=== PATIENT | female | born 1990 | race Caucasian/White ===

== ENCOUNTER 2022-07-08 04:28 | Emergency (ER) | payer MEDICAID, SELFPAY ==
[2022-07-08 04:39] VITALS: BP 134/87; PULSE 68; RESP 18; TEMP 36.8; O2SAT 98
--- NOTE | 2022-07-08 04:45 | CRLHL7_ITS ---
For Patients: As a result of the Cures Act, medical imaging exams and procedure reports are released immediately into your electronic medical record. You may view this report before your referring provider. If you have questions, please contact your health care provider. INDICATION: Injury and pain. TECHNIQUE: Chest and right ribs 3 views. COMPARISON: 05/28/2013. FINDINGS: Cardiovascular and mediastinum: Heart size and vasculature are normal in caliber and appearance. Mediastinum is within normal limits. Lungs and pleural spaces: Lungs are clear. No sign of infiltrate or mass. No sign of pleural effusion. No pneumothorax. Bones and soft tissues: Detailed oblique images of the right ribs demonstrate no fractures or bone lesions. IMPRESSION: Unremarkable chest and right ribs. Dictated by Romel Mireles MD @ 07/08/2022 5:17:12 AM (Electronically Signed)
[2022-07-08] MEDS: IPRAT-ALBUT 0.5-2.5 MG/3 ML NEB 1 NEB IH (05:40)
--- NOTE | 2022-07-08 05:45 | ED_ITS ---
HPI - Chest Pain General Date Seen: 07/08/22 Chief Complaint: Rib Pain Stated Complaint: lung or rib, shortness of breathe Time Seen by Provider: 07/08/22 04:58 Source: patient Mode of arrival: ambulatory Limitations: no limitations History of Present Illness HPI narrative: Patient is a 32-year-old female who has been sick for the last month, she has a cough, she was coughing tonight time and noted up pop on the right side of her chest, while she was coughing. She has had pain on the right side since this occurred, and she presents here approximately 30 minutes after this occurred, sh e did try earlier in the close antibiotics for sinusitis, and also prednisone and albuterol. She has no previous history of asthma pneumonias, presents ambulatory here, speaks normally, does have some coughing, complaint: chest discomfort Onset (ago): minute(s) Prior episodes: No Pain location: right chest Pain radiation: none Severity: moderate Quality: aching Relieving factors: nothing Exacerbating factors: nothing Context: recent illness Treatment prior to arrival: none Risk Factors Coronary artery disease risk factors: none Thoracic aortic dissection risk factors: none Related Data On Oral Contraceptives: No Home Medications Medication Instructions Recorded Confirmed ibuprofen 200 mg tablet 400 mg PO Q6H PRN 05/11/22 07/08/22 omeprazole 20 mg capsule,delayed 20 mg PO DAILY 05/11/22 07/08/22 release ondansetron 4 mg disintegrating 4 mg PO Q6H PRN 05/11/22 06/21/22 tablet sertraline 50 mg tablet 50 mg PO DAILY 05/11/22 06/21/22 pseudoephedrine-ibuprofen 30 cap PO 06/10/22 06/21/22 mg-200 mg capsule (Advil Cold and Sinus) Previous Rx's Medication Instructions Recorded cefdinir 300 mg capsule 300 mg PO BID #20 caps 06/10/22 albuterol sulfate 2.5 mg/3 mL 2.5 mg (3 mL) inhalation Q4H #75 mL 06/21/22 (0.083 %) solution for nebulization albuterol sulfate 90 mcg/actuation 2 puff inhalation Q4-6H PRN 06/21/22 aerosol inhaler shortness of breath or wheezing #6.7 grams prednisone 20 mg tablet 40 mg PO QDAY #10 tabs 06/21/22 Allergies Allergy/AdvReac Type Severity Reaction Status Date / Time amoxicillin [From Augmentin] AdvReac Verified 07/08/22 04:42 clavulanic acid AdvReac Verified 07/08/22 04:42 [From Augmentin] Clavulanate Allergy Mild diarrhea, Uncoded 06/21/22 13:49 nausea and vomiting Review of Systems Status of ROS Reports: 10 or more systems reviewed and unremarkable except as noted in History and below PFSH PFSH Medical History Bronchitis Surgical History History of laparoscopic appendectomy Status post tonsillectomy and adenoidectomy (06/13/09) Social History Smoking Status: Never smoker Exam Narrative Exam Narrative: Patient is seen in room 3, she is seen with nurse Nay present. Speaking to me in normal sentences, she does have occasional coughing, some pain with sitting up, better with lying backward come in 45?. Pupils are equal round reactive to light there is no scleral icterus redness TMs are normal oropharynx is normal her neck is supple full range of motion, her chest is good air entry throughout all areas of her chest on auscultation both right and left. There is no signs respiratory distress. There is no crunching sound Ng of subcutaneous emphysema. There is no stridor but she does having expiratory wheezes right greater than left notable. Heart sounds are normal her abdomen is soft there is no guarding no past splenomegaly With ultrasound, I was able to see sliding sign on the right side, thus Faviola no evidence of pneumothorax. Const Vital Signs, click to edit/add: Vital Signs - 24 hr 07/08/22 04:39 Temperature 98.2 F Pulse Rate [Left Pulse Oximeter] 68 Respiratory Rate 18 Blood Pressure [Right Upper Arm] 134/87 Pulse Oximetry 98 Oxygen Delivery Method Room Air Documenting provider has reviewed patient's vital signs: yes Course Course Hospital Course: Because there wheezing I did give her a DuoNeb treatment, wheezing was significantly better after the treatment, I discussed with her that I do not see any evidence of a pneumothorax your, rib fracture, on x-ray, or on the ultrasound, as there was a good sliding sign. Radiology also agreed with no pneumothorax or rib fracture, I think she is having significant bronchospasm still on encouraged her to use her inhaler which I prescribed. Went over signs and symptoms of worsening when she should follow up and she was comfortable with this. Vital Signs Vital signs: Initial Vital Signs Temperature 98.2 F 07/08/22 04:39 Temperature Source Temporal Artery Scan 07/08/22 04:39 Pulse Rate 68 07/08/22 04:39 Respiratory Rate 18 07/08/22 04:39 Blood Pressure 134/87 07/08/22 04:39 Blood Pressure Mean 102 07/08/22 04:39 Blood Pressure Position Sitting 07/08/22 04:39 Pulse Oximetry 98 07/08/22 04:39 Oxygen Delivery Method 07/08/22 04:39 Vital Signs Temperature 98.2 F 07/08/22 04:39 Pulse Rate 68 07/08/22 04:39 Respiratory Rate 18 07/08/22 04:39 Blood Pressure 134/87 07/08/22 04:39 Pulse Oximetry 98 07/08/22 04:39 Oxygen Delivery Method 07/08/22 04:39 Temperature 98.2 F 07/08/22 04:39 Pulse Rate 68 07/08/22 04:39 Respiratory Rate 18 07/08/22 04:39 Blood Pressure 134/87 07/08/22 04:39 Pulse Oximetry 98 07/08/22 04:39 Oxygen Delivery Method 07/08/22 04:39 MDM - Chest Pain MDM Narrative Medical decision making narrative: Differential diagnosis include a viral upper respiratory illness, histoplasmosis, tuberculosis, pneumonia, COPD exacerbation, emphysema, strep throat illness, bronchitis, asthma, reactive airway disease, chronic cough, medication side effects, allergic rhinitis with postnasal drip, foreign body aspiration, aspiration pneumonia, bronchiolitis, and gastroesophageal reflux disease as well as multiple other considerations. Differential Diagnosis Differential diagnosis: Likely fracture of rib, pneumothorax, atypical chest pain, costochondritis and chest pain Medical Records Data Attestation: I reviewed the patient's medical records. Imaging Data Chest x-ray: Attestation: I have reviewed the pertinent imaging results. My impression: Normal x-ray no evidence of pneumothorax no evidence of cracked rib Radiologist's impression: atient: IMER NEAL Facility:?[facility] Patient ID:?[id number] Site Patient ID:?[id number]. Site :?[id number] Study:?XRay Chest Right RIB & PA CXR-07/08/2022 5:10:59 AM Ordering Physician:Bryan Vasquez Final Report: INDICATION: Injury and pain. TECHNIQUE: Chest and right ribs 3 views. COMPARISON: 05/28/2013. FINDINGS: Cardiovascular and mediastinum: Heart size and vasculature are normal in caliber and appearance. Mediastinum is within normal limits. Lungs and pleural spaces: Lungs are clear. No sign of infiltrate or mass. No sign of pleural effusion. No pneumothorax. Bones and soft tissues: Detailed oblique images of the right ribs demonstrate no fractures or bone lesions. IMPRESSION: Unremarkable chest and right ribs. Dictated by Romel Mireles MD @ 07/08/2022 5:17:12 AM (Electronic Signature) Discharge Plan Discharge Clinical Impression: Cough, Acute bronchospasm, Chest wall muscle strain Patient Disposition: Home, Self-Care Condition: Stable Instructions: Muscle Strain (DC), Bronchospasm (ED), Acute Cough (ED), Chest Wall Pain (ED) Additional Instructions: Home rest use of ibuprofen, and or Tylenol for the muscle pain, the radiologist also did not see any evidence of a collapsed lung, rib fracture or anything else on the x-ray. You do have the wheezing in her lungs, I will give you another inhaler that you can use use 2 puffs every 4-6 hours and this should help the wheezing part of it. Unfortunately these coughs can go on for a longer than we think, mine has been for the last 4 weeks. Prescriptions: No Action omeprazole 20 mg capsule,delayed release(DR/EC) 20 mg PO DAILY sertraline 50 mg tablet 50 mg PO DAILY ondansetron 4 mg tablet,disintegrating 4 mg PO Q6H PRN ibuprofen 200 mg tablet 400 mg PO Q6H PRN albuterol sulfate 90 mcg/actuation HFA aerosol inhaler 2 puff inhalation Q4-6H PRN (Reason: shortness of breath or wheezing) Qty: 6.7 0RF prednisone 20 mg tablet 40 mg PO QDAY Qty: 10 0RF albuterol sulfate 2.5 mg /3 mL (0.083 %) solution for nebulization 2.5 mg inhalation Q4H Qty: 75 0RF Advil Cold and Sinus 30-200 mg capsule PO cefdinir 300 mg capsule 300 mg PO BID Qty: 20 0RF Follow Up/Referrals: Tim Soto MD [Primary Care Provider] - Stand Alone Forms: [employer] Info Instructions
[2022-07-08 06:24] VITALS: BP 126/79; PULSE 64; RESP 18
== END 2022-07-08 06:24 | disposition home or self-care (01) ==
LOC: ED 05:42
PROVIDERS: Emergency Provider Family Medicine; PCP Family Medicine
DX: J98.01 Acute bronchospasm (principal)
CPT/HCPCS: 71100; 71101; 94640; 99283; 99284

== ENCOUNTER 2023-06-21 17:21 | Outpatient (CLI) | payer MEDICAID, SELFPAY ==
[2023-06-21 23:39] LABS: Chlamydia DNA Amplified* NOT DETECTED (No Detected); GC DNA Amplified* NOT DETECTED (No Detected)
== END 2023-06-21 17:22 | disposition home or self-care (01) ==
PROVIDERS: PCP Family Medicine; Visit Provider Physician Assistant
DX: N89.8 Other specified noninflammatory disorders of vagina (principal)
CPT/HCPCS: 86592; 86703; 86803; 87086; 87340; 87491; 87591